=== PATIENT | female | born 1940 | race Caucasian/White ===

== ENCOUNTER 2017-09-22 13:52 | Inpatient (IN) | payer MEDICARE, OTHER ==
--- NOTE | 2017-09-22 14:05 | EDM.PDOC ---
ED HPI GENERAL MEDICAL PROBLEM - General Chief Complaint: Respiratory Problem Stated Complaint: IN BY AMBULANCE Time Seen by Provider: 09/22/17 13:55 Source of Information: Reports: Patient, EMS, EMS Notes Reviewed, RN, RN Notes Reviewed History Limitations: Reports: No Limitations - History of Present Illness INITIAL COMMENTS - FREE TEXT/NARRATIVE: Patient presents to ER per [facility] with complaint of nausea and shortness of breath. Patient states she began feeling ill last night with nausea and vomiting. she denies diarrhea. She denies fever or chills. States increased shortness of breath last night and tried DuoNeb at home without help. Patient states diagnosed with lung CA 4 weeks ago. No treatment for CA as of right now. Patient history history of COPD and lung. Onset Date: 09/21/17 Duration: Getting Worse Location: Reports: Chest Quality: Reports: Ache Severity: Mild Improves with: Reports: None Worsens with: Reports: None Associated Symptoms: Reports: No Other Symptoms - Related Data Allergies Allergy/AdvReac Type Severity Reaction Status Date / Time amoxicillin Allergy Rash Verified 09/22/17 17:42 atorvastatin calcium Allergy Leg Cramps Verified 09/22/17 17:42 [From Lipitor] levofloxacin [From Levaquin] Allergy Body Aches Verified 09/22/17 17:42 Home Meds: Home Meds Ezetimibe [Zetia] 10 mg PO DAILY 10/18/13 [History] Hydrochlorothiazide/Lisinopril [Lisinopril-HCTZ 20-25 MG] 1 tab PO DAILY [History] Citalopram Hydrobromide [Citalopram HBr] 1 tab PO DAILY 08/05/14 [History] Ibuprofen 2 tab PO Q4HR PRN 08/05/14 [History] Omeprazole 20 mg PO DAILY 08/05/14 [History] Cholecalciferol (Vitamin D3) [Vitamin D3] 1 cap PO DAILY 05/02/15 [History] Nepafenac [Nevanac 0.1% Ophth Soln] 1 drop EYELF TID 05/02/15 [History] Ofloxacin [Floxin 0.3% Otic Soln] 1 drop EYELF QID 05/02/15 [History] Potassium Chloride 2 tab PO DAILY 05/02/15 [History] prednisoLONE Acetate [Pred Forte 1% Ophth Soln] 1 drop EYELF ASDIRECTED [History] Psyllium Seed (With Sugar) [Metamucil Powder] 1 dose PO DAILY PRN 06/29/15 [ History] Past Medical History HEENT History: Reports: Cataract, Impaired Vision Other HEENT History: WEARS GLASSES Cardiovascular History: Reports: High Cholesterol, Hypertension Other Cardiovascular History: HYPERLIPIDEMIA Respiratory History: Reports: Bronchitis, Recurrent Gastrointestinal History: Reports: Diverticulosis, GERD Genitourinary History: Reports: None [employer] History: Reports: Musculoskeletal History: Reports: Back Pain, Chronic, RA, Other (See Below) Other Musculoskeletal History: BIMALLEOAR ANKLE FRACTURE Neurological History: Reports: None Psychiatric History: Reports: Anxiety, Depression Endocrine/Metabolic History: Reports: Osteopenia Hematologic History: Reports: Other (See Below) Other Hematologic History: HYPOKALEMIA Immunologic History: Reports: None Oncologic (Cancer) History: Reports: Breast, Lung Dermatologic History: Reports: None - Past Surgical History HEENT Surgical History: Reports: Cataract Surgery Female Surgical History: Reports: Breast Biopsy Oncologic Surgical History: Reports: Biopsy of Breast, Lumpectomy Social & Family History - Tobacco Use Smoking Status *Q: Former Smoker Years of Tobacco use: 55 Packs/Tins Daily: 1 Used Tobacco, but Quit: No Second Hand Smoke Exposure: Yes - Alcohol Use Days Per Week of Alcohol Use: 2 Number of Drinks Per Day: 5 Total Drinks Per Week: 10 - Recreational Drug Use Recreational Drug Use: No Drug Use in Last 12 Months: No - Living Situation & Occupation Living situation: Reports: Single, Alone Occupation: Employed ED ROS GENERAL - Review of Systems Review Of Systems: ROS reveals no pertinent complaints other than HPI. ED EXAM, GENERAL - Physical Exam Exam: See Below Exam Limited By: No Limitations General Appearance: Other (ill appearing) Eye Exam: Bilateral Eye: Normal Inspection Ears: Normal External Exam, Normal Canal, Hearing Grossly Normal, Normal TMs Nose: Normal Inspection, Normal Mucosa, No Blood Throat/Mouth: Normal Inspection, Normal Lips, Normal Teeth, Normal Gums, Normal Oropharynx, Normal Voice, No Airway Compromise Head: Atraumatic, Normocephalic Neck: Normal Inspection, Supple, Non-Tender, Full Range of Motion Respiratory/Chest: Crackles (to bases), Other (decreased air entry (lung sounds) . ) Cardiovascular: Irregularly Irregular GI/Abdominal: Normal Bowel Sounds, Soft, Non-Tender, No Organomegaly, No Distention, No Abnormal Bruit, No Mass (Female) Exam: Deferred Rectal (Female) Exam: Deferred Back Exam: Full Range of Motion Extremities: Normal Inspection Neurological: Alert, Oriented, CN II-XII Intact, Normal Cognition, Normal Gait, Normal Reflexes, No Motor/Sensory Deficits Psychiatric: Normal Affect, Normal Mood Skin Exam: Pallor Lymphatic: No Adenopathy EKG INTERPRETATION EKG Date: 09/22/17 Time: 13:58 Rate (Beats/Min): 106 EKG Interpretation Comments: EKG on 09/22/17 shows sinus tachycardia and left bundle branch block. Course - Vital Signs Last Recorded V/S: Last Vital Signs Temp 99.9 F 09/22/17 16:56 Pulse 95 09/22/17 16:56 Resp 22 H 09/22/17 16:56 BP 113/60 09/22/17 16:56 Pulse Ox 90 L 09/22/17 16:56 - Orders/Labs/Meds Orders: Active Orders 24 hr Category Date Time Status EKG Documentation Completion [RC] STAT Care 09/22/17 13:59 Active Oxygen Therapy, ED [RC] ASDIRECTED Care 09/22/17 14:01 Active RT Aerosol Therapy [RC] ASDIRECTED Care 09/22/17 14:10 Active Chest 1V Frontal [CR] Urgent Exams 09/22/17 13:59 Taken CULTURE BLOOD [BC] Stat Lab 09/22/17 14:15 Received CULTURE BLOOD [BC] Stat Lab 09/22/17 16:20 Received CULTURE SPUTUM + SMEAR [RM] Stat Lab 09/22/17 16:57 Ordered Blood Culture x2 Reflex Set [OM.PC] Stat Oth 09/22/17 13:59 Ordered Medication Orders Acetaminophen/Codeine Phosphate (Tylenol With Codeine No.3 300mg/30mg) 1 tab PO Q6H PRN PRN Reason: moderate pain Albuterol (Proventil Neb Soln) 2.5 mg NEB Q4HRRT PRN PRN Reason: sob Albuterol/Ipratropium (Duoneb 3.0-0.5 Mg/3 Ml) 3 ml NEB TIDRT [facility] Budesonide (Pulmicort) 0.5 mg NEB BIDRT [facility] Last Admin: 09/22/17 18:01 Dose: 0.5 mg Ceftriaxone Sodium (Rocephin) 1 gm IVPUSH Q24H [facility] Docusate Sodium (Colace) 100 mg PO BID PRN PRN Reason: Constipation Doxycycline Hyclate (Vibramycin) 100 mg PO BID [facility] Ezetimibe (Zetia) 10 mg PO DAILY [facility] Heparin Sodium (Porcine) (Heparin Sodium) 5,000 units SUBCUT Q8HR [facility] Ibuprofen (Motrin) mg PO Q4HR PRN PRN Reason: Pain Levothyroxine Sodium (Levothyroxine) 25 mcg PO ACBREAKFAST [facility] Methylprednisolone Sodium Succinate (Solu-Medrol) 40 mg IVPUSH Q8H [facility] Non-Formulary Medication (Hydrochlorothiazide/Lisinopril [Lisinopril-Hctz 20-25 Mg]) 1 tab PO DAILY [facility] Non-Formulary Medication (Citalopram Hydrobromide [Citalopram Hbr]) 20 mg PO DAILY [facility] Omeprazole (Omeprazole) 20 mg PO DAILY [facility] Ondansetron HCl (Zofran Odt) 4 mg PO Q6H PRN PRN Reason: nausea, able to take PO Last Admin: 09/22/17 18:01 Dose: 4 mg Ondansetron HCl (Zofran) 4 mg IVPUSH Q6H PRN PRN Reason: Nausea/Vomiting Sodium Chloride (Saline Flush) 10 ml FLUSH ASDIRECTED PRN PRN Reason: Keep Vein Open Zolpidem Tartrate (Ambien) 5 mg PO BEDTIME PRN PRN Reason: Sleep Labs: Laboratory Tests 09/22/17 09/22/17 09/22/17 Range/Units 14:15 14:15 14:15 WBC 18.8 H (5.0-10.0) 10^3/uL RBC 4.61 (4.2-5.4) 10^6/uL Hgb 13.4 (12.0-16.0) g/dL Hct 40.3 (37.0-47.0) % MCV 87.4 D (80-100) fL MCH 29.1 (27.0-34.0) pg MCHC 33.3 (33.0-35.0) g/dL Plt Count 289 (150-450) 10^3/uL Neut % (Auto) 90.4 H (42.2-75.2) % Lymph % (Auto) 3.9 L (20.5-50.1) % [place] % (Auto) 5.2 (2-8) % Eos % (Auto) 0.3 L (1.0-3.0) % Baso % (Auto) 0.2 (0.0-1.0) % Sodium 139 (135-145) mmol/L Potassium 3.2 L (3.6-5.0) mmol/L Chloride 101 (101-111) mmol/L Carbon Dioxide 28.0 (21.0-31.0) mmol/L Anion Gap 13.2 BUN 22 H (7-18) mg/dL Creatinine 1.1 (0.6-1.3) mg/dL Est Cr Clr Drug Dosing 43.62 mL/min Estimated GFR (MDRD) 48 BUN/Creatinine Ratio 20.00 Glucose 147 H (74-105) mg/dL Lactic Acid 1.4 (0.5-2.2) mmol/L Calcium 8.5 (8.4-10.2) mg/dl Total Bilirubin 0.8 (0.2-1.0) mg/dL AST 18 (10-42) IU/L ALT 12 (10-60) IU/L Alkaline Phosphatase 110 (42-121) IU/L Troponin I 0.02 (0.00-0.02) ng/ml Total Protein 6.9 (6.7-8.2) g/dl Albumin 3.0 L (3.2-5.5) g/dl Globulin 3.9 Albumin/Globulin Ratio 0.77 Meds: Medications Generic Name Dose Route Start Last Admin Trade Name Freq PRN Reason Stop Dose Admin Acetaminophen/Codeine Phosphate 1 tab 09/22/17 17:17 Tylenol With Codeine No.3 300mg/30mg PO Q6H PRN moderate pain Albuterol 2.5 mg 09/22/17 17:18 Proventil Neb Soln NEB Q4HRRT PRN sob Albuterol/Ipratropium 3 ml 09/22/17 21:00 Duoneb 3.0-0.5 Mg/3 Ml NEB TIDRT [facility] Budesonide 0.5 mg 09/22/17 18:00 09/22/17 18:01 Pulmicort NEB 0.5 mg BIDRT [facility] Administration Ceftriaxone Sodium 1 gm 09/23/17 17:00 Rocephin IVPUSH Q24H [facility] Docusate Sodium 100 mg 09/22/17 17:24 Colace PO BID PRN Constipation Doxycycline Hyclate 100 mg 09/23/17 09:00 Vibramycin PO BID [facility] Ezetimibe 10 mg 09/23/17 09:00 Zetia PO DAILY [facility] Heparin Sodium (Porcine) 5,000 units 09/22/17 22:00 Heparin Sodium SUBCUT Q8HR [facility] Ibuprofen mg 09/22/17 17:02 Motrin PO Q4HR PRN Pain Levothyroxine Sodium 25 mcg 09/23/17 06:00 Levothyroxine PO ACBREAKFAST [facility] Methylprednisolone Sodium Succinate 40 mg 09/23/17 00:00 Solu-Medrol IVPUSH Q8H [facility] Non-Formulary Medication 1 tab 09/23/17 09:00 Hydrochlorothiazide/Lisinopril [Lisinopril-Hctz 20-25 Mg] PO DAILY [facility] Non-Formulary Medication 20 mg 09/23/17 09:00 Citalopram Hydrobromide [Citalopram Hbr] PO DAILY [facility] Omeprazole 20 mg 09/23/17 09:00 Omeprazole PO DAILY [facility] Ondansetron HCl 4 mg 09/22/17 17:24 09/22/17 18:01 Zofran Odt PO 4 mg Q6H PRN Administration nausea, able to take PO Ondansetron HCl 4 mg 09/22/17 17:24 Zofran IVPUSH Q6H PRN Nausea/Vomiting Sodium Chloride 10 ml 09/22/17 17:24 Saline Flush FLUSH ASDIRECTED PRN Keep Vein Open Zolpidem Tartrate 5 mg 09/22/17 17:24 Ambien PO BEDTIME PRN Sleep Discontinued Medications Generic Name Dose Route Start Last Admin Trade Name Freq PRN Reason Stop Dose Admin Albuterol/Ipratropium 3 ml 09/22/17 14:10 09/22/17 14:58 Duoneb 3.0-0.5 Mg/3 Ml NEB 09/22/17 14:11 3 ml ONETIME ONE Administration Ceftriaxone Sodium Confirm 09/22/17 16:38 09/22/17 16:56 Rocephin Administered 09/22/17 16:39 Not Given Dose 500 mg .ROUTE .STK-MED ONE Ceftriaxone Sodium 1,000 mg/ 100 mls @ 200 mls/hr 09/22/17 16:08 09/22/17 16: 50 Sodium Chloride IV 09/22/17 16:37 200 mls/hr ONETIME ONE Administration Doxycycline Hyclate 100 mg/ 100 mls @ 100 mls/hr 09/22/17 16:08 Sodium Chloride IV 09/22/17 17:07 ONETIME ONE Methylprednisolone Sodium Succinate 125 mg 09/22/17 16:08 09/22/17 16:43 Solu-Medrol IVPUSH 09/22/17 16:09 125 mg ONETIME ONE Administration Non-Formulary Medication 1 tab 09/23/17 09:00 Citalopram Hydrobromide [Citalopram Hbr] PO DAILY [facility] Potassium Chloride 40 meq 09/22/17 17:21 Klor-Con 10 PO 09/22/17 17:22 ONETIME ONE Departure - Departure Time of Disposition: 17:48 Disposition: Admitted As Inpatient 67 Clinical Impression: Pneumonia Qualifiers: Pneumonia type: due to unspecified organism Laterality: left Lung location: lower lobe of lung Qualified Code(s): J18.1 - Lobar pneumonia, unspecified organism - Discharge Information
[2017-09-22] MEDS ORDERED: Albuterol/Ipratropium 3.0-0.5 MG/3 ML Neb Soln NEB ONE (14:10)
[2017-09-22] MEDS ORDERED: Doxycycline 100 MG in Sodium Chloride 0.9% 100 ML IV ONE ×2 (16:08→18:30)
[2017-09-22] MEDS ORDERED: methylPREDNISolone Sodium Succinate 125 MG/2 ML SDV IVPUSH ONE (16:08)
[2017-09-22] MEDS ORDERED: cefTRIAXone 500 MG Vial ONE (16:38)
[2017-09-22] MEDS ORDERED: Ibuprofen 200 MG Tab PO PRN (17:02)
[2017-09-22] MEDS ORDERED: Acetaminophen/Codeine 300-30 MG Tab PO PRN (17:17)
[2017-09-22] MEDS ORDERED: Albuterol 0.083% 2.5 MG/3 ML Neb Soln NEB PRN (17:18)
[2017-09-22] MEDS ORDERED: Potassium Chloride 10 MEQ Tab.ER PO ONE (17:21)
[2017-09-22] MEDS ORDERED: Ondansetron 4 MG/2 ML SDV IVPUSH PRN (17:24)
[2017-09-22] MEDS ORDERED: Ondansetron 4 MG Tab.DIS PO PRN (17:24)
[2017-09-22] MEDS ORDERED: Docusate Sodium 100 MG Cap PO PRN (17:24)
--- NOTE | 2017-09-22 17:40 | PCM.HP ---
H&P History of Present Illness - General Date of Service: 09/22/17 Admit Problem/Dx: Admission Diagnosis/Problem Admission Diagnosis/Problem Pneumonia Source of Information: Patient - History of Present Illness Initial Comments - Free Text/Narative: 77-year-old lady who presented with malaise, nausea, increasing shortness of breath. She has a history of severe COPD, hypertension, oxygen dependency, recently diagnosed lung cancer Comes have been present for 34 days. Symptoms have been worsening. No associated chest pain. She is on home oxygen but when the EMS arrived she was hypoxemic on her usual home oxygen dose. Oxygen saturations were in the low 80s. She had subjective fever and chills but could not measure her temperature at home. - Related Data Allergies/Adverse Reactions: Allergies Allergy/AdvReac Type Severity Reaction Status Date / Time amoxicillin Allergy Rash Verified 09/22/17 13:57 atorvastatin calcium Allergy Leg Cramps Verified 09/22/17 13:57 [From Lipitor] levofloxacin [From Levaquin] Allergy Body Aches Verified 09/22/17 13:57 Home Medications: Home Meds Ezetimibe [Zetia] 10 mg PO DAILY 10/18/13 [History] Hydrochlorothiazide/Lisinopril [Lisinopril-HCTZ 20-25 MG] 1 tab PO DAILY [History] Citalopram Hydrobromide [Citalopram HBr] 1 tab PO DAILY 08/05/14 [History] Ibuprofen 2 tab PO Q4HR PRN 08/05/14 [History] Omeprazole 20 mg PO DAILY 08/05/14 [History] Cholecalciferol (Vitamin D3) [Vitamin D3] 1 cap PO DAILY 05/02/15 [History] Nepafenac [Nevanac 0.1% Ophth Soln] 1 drop EYELF TID 05/02/15 [History] Ofloxacin [Floxin 0.3% Otic Soln] 1 drop EYELF QID 05/02/15 [History] Potassium Chloride 2 tab PO DAILY 05/02/15 [History] prednisoLONE Acetate [Pred Forte 1% Ophth Soln] 1 drop EYELF ASDIRECTED [History] Psyllium Seed (With Sugar) [Metamucil Powder] 1 dose PO DAILY PRN 06/29/15 [ History] Past Medical History HEENT History: Reports: Cataract, Impaired Vision Other HEENT History: WEARS GLASSES Cardiovascular History: Reports: High Cholesterol, Hypertension Other Cardiovascular History: HYPERLIPIDEMIA Respiratory History: Reports: Bronchitis, Recurrent Gastrointestinal History: Reports: Diverticulosis, GERD Genitourinary History: 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: Musculoskeletal History: Reports: Back Pain, Chronic, RA, Other (See Below) Other Musculoskeletal History: BIMALLEOAR ANKLE FRACTURE Neurological History: Reports: None Psychiatric History: Reports: Anxiety, Depression Endocrine/Metabolic History: Reports: Osteopenia Hematologic History: Reports: Other (See Below) Other Hematologic History: HYPOKALEMIA Immunologic History: Reports: None Oncologic (Cancer) History: Reports: Breast, Lung Dermatologic History: Reports: None - Past Surgical History HEENT Surgical History: Reports: Cataract Surgery Female Surgical History: Reports: Breast Biopsy Oncologic Surgical History: Reports: Biopsy of Breast, Lumpectomy Social & Family History - Family History Family Medical History: Noncontributory - Tobacco Use Smoking Status *Q: Former Smoker Years of Tobacco use: 55 Packs/Tins Daily: 1 Used Tobacco, but Quit: No Month/Year Tobacco Last Used: ? Second Hand Smoke Exposure: Yes - Caffeine Use Caffeine Use: Reports: Coffee - Alcohol Use Days Per Week of Alcohol Use: 2 Number of Drinks Per Day: 5 Total Drinks Per Week: 10 - Recreational Drug Use Recreational Drug Use: No Drug Use in Last 12 Months: No - Living Situation & Occupation Living situation: Reports: Single, Alone Occupation: Employed H&P Review of Systems - Review of Systems: Review Of Systems: See Below General: Reports: Chills. 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 Denies: Hemoptysis Cardiovascular: Denies: Chest Pain, Edema Gastrointestinal: Reports: Anorexia, Nausea. Denies: Abdominal Pain Musculoskeletal: Denies: Neck Pain Psychiatric: Denies: Confusion Neurological: Denies: Dizziness Exam - Exam Exam: See Below - Vital Signs Vital Signs: Last Vital Signs Temp 37.7 C 09/22/17 16:56 Pulse 95 09/22/17 16:56 Resp 22 H 09/22/17 16:56 BP 113/60 09/22/17 16:56 Pulse Ox 90 L 09/22/17 16:56 Weight: 63.503 kg - Exam Quality Assessment: Supplemental Oxygen General: Alert HEENT: EOMI Neck: Supple Lungs: Normal Respiratory Effort, Decreased Breath Sounds. No: Wheezing Cardiovascular: Regular Rate, Regular Rhythm GI/Abdominal Exam: Normal Bowel Sounds, Soft, Non-Tender Back Exam: Normal Inspection, Full Range of Motion Extremities: Normal Inspection, No Pedal Edema - Patient Data Lab Results Last 24 hrs: Laboratory Results - last 24 hr 09/22/17 09/22/17 09/22/17 Range/Units 14:15 14:15 14:15 WBC 18.8 H (5.0-10.0) 10^3/uL RBC 4.61 (4.2-5.4) 10^6/uL Hgb 13.4 (12.0-16.0) g/dL Hct 40.3 (37.0-47.0) % MCV 87.4 D (80-100) fL MCH 29.1 (27.0-34.0) pg MCHC 33.3 (33.0-35.0) g/dL Plt Count 289 (150-450) 10^3/uL Neut % (Auto) 90.4 H (42.2-75.2) % Lymph % (Auto) 3.9 L (20.5-50.1) % [place] % (Auto) 5.2 (2-8) % Eos % (Auto) 0.3 L (1.0-3.0) % Baso % (Auto) 0.2 (0.0-1.0) % Sodium 139 (135-145) mmol/L Potassium 3.2 L (3.6-5.0) mmol/L Chloride 101 (101-111) mmol/L Carbon Dioxide 28.0 (21.0-31.0) mmol/L Anion Gap 13.2 BUN 22 H (7-18) mg/dL Creatinine 1.1 (0.6-1.3) mg/dL Est Cr Clr Drug Dosing 43.62 mL/min Estimated GFR (MDRD) 48 BUN/Creatinine Ratio 20.00 Glucose 147 H (74-105) mg/dL Lactic Acid 1.4 (0.5-2.2) mmol/L Calcium 8.5 (8.4-10.2) mg/dl Total Bilirubin 0.8 (0.2-1.0) mg/dL AST 18 (10-42) IU/L ALT 12 (10-60) IU/L Alkaline Phosphatase 110 (42-121) IU/L Troponin I 0.02 (0.00-0.02) ng/ml Total Protein 6.9 (6.7-8.2) g/dl Albumin 3.0 L (3.2-5.5) g/dl Globulin 3.9 Albumin/Globulin Ratio 0.77 Result Diagrams: 09/22/17 14:15 09/22/17 14:15 EKG INTERPRETATION Rhythm: NSR EKG Interpretation Comments: Left bundle-branch block Problem List Initiated/Reviewed/Updated: Yes Orders Last 24hrs: Active Orders 24 hr Category Date Time Status Patient Status [ADT] Routine ADT 09/22/17 17:24 Ordered EKG Documentation Completion [RC] STAT Care 09/22/17 13:59 Active Oxygen Therapy [RC] PRN Care 09/22/17 17:24 Ordered Oxygen Therapy, ED [RC] ASDIRECTED Care 09/22/17 14:01 Active Peripheral IV Care [RC] . DIRECTED Care 09/22/17 17:26 Ordered RT Aerosol Therapy [RC] ASDIRECTED Care 09/22/17 14:10 Active RT Aerosol Therapy [RC] ASDIRECTED Care 09/22/17 17:18 Ordered Up With Assistance [RC] ASDIRECTED Care 09/22/17 17:24 Ordered VTE/DVT Education [RC] PER UNIT ROUTINE Care 09/22/17 17:24 Ordered Vital Signs [RC] Q4H Care 09/22/17 17:24 Ordered Regular Diet [DIET] Diet 09/22/17 Breakfast Ordered Chest 1V Frontal [CR] Urgent Exams 09/22/17 13:59 Taken BASIC METABOLIC PANEL,BMP [CHEM] AM Lab 09/23/17 05:15 Ordered CBC WITH AUTO DIFF [HEME] AM Lab 09/23/17 05:15 Ordered CULTURE BLOOD [BC] Stat Lab 09/22/17 14:15 Received CULTURE BLOOD [BC] Stat Lab 09/22/17 16:20 Received CULTURE SPUTUM + SMEAR [RM] Stat Lab 09/22/17 16:57 Ordered Acetaminophen/Codeine [Tylenol with Codeine No.3 300MG/ Med 09/22/17 17:17 Ordered 30MG] 1 tab PO Q6H PRN Albuterol [Proventil Neb Soln] Med 09/22/17 17:18 Ordered 2.5 mg NEB Q4HRRT PRN Albuterol/Ipratropium [DuoNeb 3.0-0.5 MG/3 ML] Med 09/22/17 21:00 Ordered 3 ml NEB TID Budesonide [Pulmicort] Med 09/22/17 18:00 Ordered 0.5 mg NEB BIDRT Citalopram Hydrobromide [Citalopram HBr] Med 09/23/17 09:00 Ordered 20 mg PO DAILY Docusate Sodium [Colace] Med 09/22/17 17:24 Ordered 100 mg PO BID PRN Doxycycline [Vibramycin] Med 09/23/17 09:00 Ordered 100 mg PO BID Ezetimibe [Zetia] Med 09/23/17 09:00 Ordered 10 mg PO DAILY Heparin Sodium Med 09/22/17 22:00 Ordered 5,000 units SUBCUT Q8HR Hydrochlorothiazide/Lisinopril [Lisinopril-HCTZ 20-25 Med 09/23/17 09:00 Ordered MG] 1 tab PO DAILY Ibuprofen [Motrin] Med 09/22/17 17:02 Ordered 2 tab PO Q4HR PRN Levothyroxine Med 09/23/17 06:00 Ordered 25 mcg PO ACBREAKFAST Omeprazole Med 09/23/17 09:00 Ordered 20 mg PO DAILY Ondansetron [Zofran ODT] Med 09/22/17 17:24 Ordered 4 mg PO Q6H PRN Ondansetron [Zofran] Med 09/22/17 17:24 Ordered 4 mg IVPUSH Q6H PRN Potassium Chloride [Klor-Con 10] Med 09/22/17 17:21 Once 40 meq PO ONETIME ONE Sodium Chloride 0.9% [Saline Flush] Med 09/22/17 17:24 Ordered 10 ml FLUSH ASDIRECTED PRN Zolpidem [Ambien] Med 09/22/17 17:24 Ordered 5 mg PO BEDTIME PRN cefTRIAXone [Rocephin] Med 09/23/17 17:00 Ordered 1 gm IVPUSH Q24H methylPREDNISolone Sod Succ [Solu-MEDROL] Med 09/22/17 17:30 Ordered 40 mg IVPUSH Q8H Antiembolic Hose [OM.PC] Per Unit Routine Oth 09/22/17 17:25 Ordered Blood Culture x2 Reflex Set [OM.PC] Stat Oth 09/22/17 13:59 Ordered Peripheral IV Insertion Adult [OM.PC] Routine Oth 09/22/17 17:24 Ordered Saline Lock Insert [OM.PC] Routine Oth 09/22/17 17:24 Ordered Resuscitation Status Routine Resus Stat 09/22/17 17:24 Ordered Medication Orders Acetaminophen/Codeine Phosphate (Tylenol With Codeine No.3 300mg/30mg) 1 tab PO Q6H PRN PRN Reason: moderate pain Albuterol (Proventil Neb Soln) 2.5 mg NEB Q4HRRT PRN PRN Reason: sob Albuterol/Ipratropium (Duoneb 3.0-0.5 Mg/3 Ml) 3 ml NEB TID [facility] Budesonide (Pulmicort) 0.5 mg NEB BIDRT [facility] Ceftriaxone Sodium (Rocephin) 1 gm IVPUSH Q24H [facility] Docusate Sodium (Colace) 100 mg PO BID PRN PRN Reason: Constipation Doxycycline Hyclate (Vibramycin) 100 mg PO BID [facility] Ezetimibe (Zetia) 10 mg PO DAILY [facility] Heparin Sodium (Porcine) (Heparin Sodium) 5,000 units SUBCUT Q8HR [facility] Ibuprofen (Motrin) mg PO Q4HR PRN PRN Reason: Pain Levothyroxine Sodium (Levothyroxine) 25 mcg PO ACBREAKFAST [facility] Methylprednisolone Sodium Succinate (Solu-Medrol) 40 mg IVPUSH Q8H [facility] Non-Formulary Medication (Hydrochlorothiazide/Lisinopril [Lisinopril-Hctz 20-25 Mg]) 1 tab PO DAILY [facility] Non-Formulary Medication (Citalopram Hydrobromide [Citalopram Hbr]) 20 mg PO DAILY [facility] Omeprazole (Omeprazole) 20 mg PO DAILY [facility] Ondansetron HCl (Zofran Odt) 4 mg PO Q6H PRN PRN Reason: nausea, able to take PO Potassium Chloride (Klor-Con 10) 40 meq PO ONETIME ONE Stop: 09/22/17 17:22 Assessment/Plan Comment:: 77 yo F with h/o severe copd, home oxygen dependent, recently dx. lung ca, htn presented with malaise, chills, cough, increasing sob noted to have left sided lung infiltrate, leukocytosis #1 left-sided pneumonia In an immunocompromised patient with lung cancer, COPD, home oxygen dependency We'll obtain sputum culture, blood culture Start the patient on ceftriaxone and doxycycline treatment. #2 acute and chronic hypoxemic respiratory failure Normally the patient is on 2 L nasal cannula oxygen We'll supplement oxygen as needed #3 recent diagnosis of lung cancer No treatment started yet [facility] #4 acute COPD exacerbation with shortness of breath We'll continue Pulmicort, scheduled DuoNeb Use as needed albuterol for shortness of breath Start IV Solu-Medrol and taper later #5 hypertension Treat with hydrochlorothiazide and lisinopril #6 hypokalemia We'll give supplement dose now Continue supplement daily Recheck electrolytes in the morning #7 hypothyroidism Treat with Synthroid #8 DVT prophylaxis Start subcutaneous heparin
[2017-09-22] MEDS: Budesonide 0.5 MG/2 ML Neb Susp NEB SCH (18:01)
[2017-09-22] MEDS: Heparin Sodium 5,000 Units/ML Vial SUBCUT SCH (21:21)
[2017-09-22] MEDS: Albuterol/Ipratropium 3.0-0.5 MG/3 ML Neb Soln NEB SCH (21:21)
[2017-09-22] MEDS ORDERED: Calcium Carbonate 500 MG Tab.Chew PO PRN (21:51)
[2017-09-22] MEDS: Zolpidem 5 MG Tab PO PRN (22:01)
[2017-09-22] MEDS: Omeprazole 20 MG Cap.CR PO SCH (22:01)
[2017-09-22] MEDS: methylPREDNISolone Sodium Succinate 40 MG/1 ML SDV IVPUSH SCH (23:02)
[2017-09-22] MEDS: guaiFENesin 100 MG/5 ML Soln 5 ML UD Cup PO PRN (23:02)
[2017-09-23] MEDS: Levothyroxine 25 MCG Tab PO SCH (05:36)
[2017-09-23] MEDS: Omeprazole 20 MG Cap.CR PO SCH (05:36)
[2017-09-23] MEDS: Heparin Sodium 5,000 Units/ML Vial SUBCUT SCH ×3 (05:36→23:11)
[2017-09-23] MEDS: methylPREDNISolone Sodium Succinate 40 MG/1 ML SDV IVPUSH SCH ×2 (07:39→16:28)
[2017-09-23] MEDS: Sodium Chloride 0.9% 10 ML Syringe FLUSH PRN ×4 (07:44→23:29)
[2017-09-23] MEDS: Budesonide 0.5 MG/2 ML Neb Susp NEB SCH ×2 (07:53→18:33)
[2017-09-23] MEDS: Albuterol/Ipratropium 3.0-0.5 MG/3 ML Neb Soln NEB SCH ×3 (07:53→22:58)
[2017-09-23] MEDS ORDERED: Non-Formulary Medication 1 Each (Hydrochlorothiazide/Lisinopril [Lisinopril-Hctz 20-25 Mg] PO SCH (09:00)
[2017-09-23] MEDS ORDERED: CITALOPRAM HYDROBROMIDE PO SCH (09:00)
[2017-09-23] MEDS ORDERED: Ezetimibe 10 MG Tab PO SCH (09:00)
[2017-09-23] MEDS: Citalopram 20 MG Tab PO SCH (09:35)
[2017-09-23] MEDS: Doxycycline 100 MG Cap PO SCH ×2 (09:36→22:59)
[2017-09-23] MEDS: Hydrochlorothiazide 25 MG Tab PO SCH (10:20)
[2017-09-23] MEDS: Lisinopril 20 MG Tab PO SCH (10:20)
[2017-09-23] MEDS: guaiFENesin 100 MG/5 ML Soln 5 ML UD Cup PO PRN (11:23)
[2017-09-23] MEDS ORDERED: Potassium Chloride 10 MEQ Tab.ER PO ONE (12:44)
--- NOTE | 2017-09-23 13:01 | PCM.PN ---
- General Info Date of Service: 09/23/17 Admission Dx/Problem (Free Text): Admission Diagnosis/Problem Admission Diagnosis/Problem Pneumonia Subjective Update: Admitted with shortness of breath. She is feeling better. She still has a cough. No associated chest pain. No abdominal pain. No diarrhea, she says she has a tendency for constipation. Functional Status: Reports: Pain Controlled - Review of Systems General: Denies: Fever Pulmonary: Reports: Cough. Denies: Shortness of Breath, Hemoptysis, Wheezing Cardiovascular: Denies: Chest Pain Gastrointestinal: Denies: Abdominal Pain Genitourinary: Denies: Dysuria Neurological: Denies: Confusion Psychiatric: Denies: Depression - Patient Data Vitals - Most Recent: Last Vital Signs Temp 36.5 C 09/23/17 11:36 Pulse 121 H 09/23/17 11:36 Resp 20 09/23/17 11:36 BP 107/43 L 09/23/17 11:36 Pulse Ox 94 L 09/23/17 11:36 Weight - Most Recent: 63.049 kg I&O - Last 24 Hours: Intake & Output 09/22/17 09/23/17 09/23/17 22:59 06:59 14:59 Intake Total 1800 100 625 Output Total 200 400 Balance 1600 100 225 Lab Results Last 24 Hours: Laboratory Results - last 24 hr 09/22/17 09/22/17 09/22/17 Range/Units 14:15 14:15 14:15 WBC 18.8 H (5.0-10.0) 10^3/uL RBC 4.61 (4.2-5.4) 10^6/uL Hgb 13.4 (12.0-16.0) g/dL Hct 40.3 (37.0-47.0) % MCV 87.4 D (80-100) fL MCH 29.1 (27.0-34.0) pg MCHC 33.3 (33.0-35.0) g/dL Plt Count 289 (150-450) 10^3/uL Neut % (Auto) 90.4 H (42.2-75.2) % Lymph % (Auto) 3.9 L (20.5-50.1) % [place] % (Auto) 5.2 (2-8) % Eos % (Auto) 0.3 L (1.0-3.0) % Baso % (Auto) 0.2 (0.0-1.0) % Sodium 139 (135-145) mmol/L Potassium 3.2 L (3.6-5.0) mmol/L Chloride 101 (101-111) mmol/L Carbon Dioxide 28.0 (21.0-31.0) mmol/L Anion Gap 13.2 BUN 22 H (7-18) mg/dL Creatinine 1.1 (0.6-1.3) mg/dL Est Cr Clr Drug Dosing 43.62 mL/min Estimated GFR (MDRD) 48 BUN/Creatinine Ratio 20.00 Glucose 147 H (74-105) mg/dL Lactic Acid 1.4 (0.5-2.2) mmol/L Calcium 8.5 (8.4-10.2) mg/dl Total Bilirubin 0.8 (0.2-1.0) mg/dL AST 18 (10-42) IU/L ALT 12 (10-60) IU/L Alkaline Phosphatase 110 (42-121) IU/L Troponin I 0.02 (0.00-0.02) ng/ml Total Protein 6.9 (6.7-8.2) g/dl Albumin 3.0 L (3.2-5.5) g/dl Globulin 3.9 Albumin/Globulin Ratio 0.77 09/23/17 09/23/17 Range/Units 06:28 06:28 WBC 13.7 H (5.0-10.0) 10^3/uL RBC 4.02 L (4.2-5.4) 10^6/uL Hgb 11.7 L D (12.0-16.0) g/dL Hct 35.5 L (37.0-47.0) % MCV 88.3 (80-100) fL MCH 29.1 (27.0-34.0) pg MCHC 33.0 (33.0-35.0) g/dL Plt Count 264 (150-450) 10^3/uL Neut % (Auto) 96.1 H (42.2-75.2) % Lymph % (Auto) 2.6 L (20.5-50.1) % [place] % (Auto) 1.2 L (2-8) % Eos % (Auto) 0.0 L (1.0-3.0) % Baso % (Auto) 0.1 (0.0-1.0) % Sodium 137 (135-145) mmol/L Potassium 3.5 L (3.6-5.0) mmol/L Chloride 102 (101-111) mmol/L Carbon Dioxide 26.0 (21.0-31.0) mmol/L Anion Gap 12.5 BUN 27 H (7-18) mg/dL Creatinine 1.1 (0.6-1.3) mg/dL Est Cr Clr Drug Dosing 43.31 mL/min Estimated GFR (MDRD) 48 BUN/Creatinine Ratio Glucose 178 H (74-105) mg/dL Lactic Acid (0.5-2.2) mmol/L Calcium 8.5 (8.4-10.2) mg/dl Total Bilirubin (0.2-1.0) mg/dL AST (10-42) IU/L ALT (10-60) IU/L Alkaline Phosphatase (42-121) IU/L Troponin I (0.00-0.02) ng/ml Total Protein (6.7-8.2) g/dl Albumin (3.2-5.5) g/dl Globulin Albumin/Globulin Ratio Yuri Results Last 24 Hours: Microbiology 09/22/17 16:57 Gram Stain - Final Sputum - Expectorated Med Orders - Current: Current Medications Acetaminophen/Codeine Phosphate (Tylenol With Codeine No.3 300mg/30mg) 1 tab PO Q6H PRN PRN Reason: moderate pain Albuterol (Proventil Neb Soln) 2.5 mg NEB Q4HRRT PRN PRN Reason: sob Albuterol/Ipratropium (Duoneb 3.0-0.5 Mg/3 Ml) 3 ml NEB TIDRT [facility] Last Admin: 09/23/17 07:53 Dose: 3 ml Budesonide (Pulmicort) 0.5 mg NEB BIDRT [facility] Last Admin: 09/23/17 07:53 Dose: 0.5 mg Calcium Carbonate/Glycine (Tums) 500 mg PO Q6H PRN PRN Reason: Nausea Last Admin: 09/22/17 23:03 Dose: 500 mg Ceftriaxone Sodium (Rocephin) 1 gm IVPUSH Q24H [facility] Citalopram Hydrobromide (Celexa) 20 mg PO DAILY [facility] Last Admin: 09/23/17 09:35 Dose: 20 mg Docusate Sodium (Colace) 100 mg PO BID PRN PRN Reason: Constipation Doxycycline Hyclate (Vibramycin) 100 mg PO BID [facility] Last Admin: 09/23/17 09:36 Dose: 100 mg Guaifenesin (Robitussin) 300 mg PO Q6H PRN PRN Reason: Cough Last Admin: 09/23/17 11:23 Dose: 300 mg Heparin Sodium (Porcine) (Heparin Sodium) 5,000 units SUBCUT Q8HR [facility] Last Admin: 09/23/17 05:36 Dose: 5,000 units Hydrochlorothiazide (Hydrochlorothiazide) 25 mg PO DAILY [facility] Last Admin: 09/23/17 10:20 Dose: 25 mg Ibuprofen (Motrin) 400 mg PO Q4H PRN PRN Reason: Pain Levothyroxine Sodium (Levothyroxine) 25 mcg PO ACBREAKFAST [facility] Last Admin: 09/23/17 05:36 Dose: 25 mcg Lisinopril (Prinivil) 20 mg PO DAILY [facility] Last Admin: 09/23/17 10:20 Dose: 20 mg Methylprednisolone Sodium Succinate (Solu-Medrol) 40 mg IVPUSH Q8H [facility] Last Admin: 09/23/17 07:39 Dose: 40 mg Omeprazole (Omeprazole) 20 mg PO DAILY@0600 [facility] Last Admin: 09/23/17 05:36 Dose: 20 mg Ondansetron HCl (Zofran Odt) 4 mg PO Q6H PRN PRN Reason: nausea, able to take PO Last Admin: 09/22/17 18:01 Dose: 4 mg Ondansetron HCl (Zofran) 4 mg IVPUSH Q6H PRN PRN Reason: Nausea/Vomiting Potassium Chloride (Klor-Con 10) 40 meq PO ONETIME ONE Stop: 09/23/17 12:45 Sodium Chloride (Saline Flush) 10 ml FLUSH ASDIRECTED PRN PRN Reason: Keep Vein Open Last Admin: 09/23/17 07:44 Dose: 10 ml Zolpidem Tartrate (Ambien) 5 mg PO BEDTIME PRN PRN Reason: Sleep Last Admin: 09/22/17 22:01 Dose: 5 mg Discontinued Medications Albuterol/Ipratropium (Duoneb 3.0-0.5 Mg/3 Ml) 3 ml NEB ONETIME ONE Stop: 09/22/17 14:11 Last Admin: 09/22/17 14:58 Dose: 3 ml Ceftriaxone Sodium (Rocephin) Confirm Administered Dose 500 mg .ROUTE .STK-MED ONE Stop: 09/22/17 16:39 Last Admin: 09/22/17 16:56 Dose: Not Given Ezetimibe (Zetia) 10 mg PO DAILY [facility] Ceftriaxone Sodium 1,000 mg/ (Sodium Chloride) 100 mls @ 200 mls/hr IV ONETIME ONE Stop: 09/22/17 16:37 Last Infusion: 09/22/17 19:44 Dose: Infused Doxycycline Hyclate 100 mg/ (Sodium Chloride) 100 mls @ 100 mls/hr IV ONETIME ONE Stop: 09/22/17 17:07 Last Admin: 09/22/17 18:28 Dose: Not Given Doxycycline Hyclate 100 mg/ (Sodium Chloride) 100 mls @ 100 mls/hr IV ONETIME ONE Stop: 09/22/17 19:29 Last Admin: 09/22/17 18:38 Dose: 100 mls/hr Methylprednisolone Sodium Succinate (Solu-Medrol) 125 mg IVPUSH ONETIME ONE Stop: 09/22/17 16:09 Last Admin: 09/22/17 16:43 Dose: 125 mg Non-Formulary Medication (Citalopram Hydrobromide [Citalopram Hbr]) 1 tab PO DAILY [facility] Potassium Chloride (Klor-Con 10) 40 meq PO ONETIME ONE Stop: 09/22/17 17:22 Last Admin: 09/22/17 18:36 Dose: 40 meq - Exam Quality Assessment: Supplemental Oxygen General: Alert, Oriented Neck: Supple Lungs: Clear to Auscultation, Normal Respiratory Effort Cardiovascular: Regular Rate, Regular Rhythm GI/Abdominal Exam: Normal Bowel Sounds, Soft, Non-Tender, No Distention Extremities: No Pedal Edema - Problem List Review Problem List Initiated/Reviewed/Updated: Yes - My Orders Last 24 Hours: My Active Orders 09/22/17 17:02 Ibuprofen [Motrin] 400 mg PO Q4H PRN 09/22/17 17:17 Acetaminophen/Codeine [Tylenol with Codeine No.3 300MG/30MG] 1 tab PO Q6H PRN 04/22/18 17:18 RT Aerosol Therapy [RC] ASDIRECTED Albuterol [Proventil Neb Soln] 2.5 mg NEB Q4HRRT PRN 09/22/17 17:24 Patient Status [ADT] Routine Oxygen Therapy [RC] PRN Up With Assistance [RC] ASDIRECTED VTE/DVT Education [RC] PER UNIT ROUTINE Vital Signs [RC] Q4H Docusate Sodium [Colace] 100 mg PO BID PRN Ondansetron [Zofran ODT] 4 mg PO Q6H PRN Ondansetron [Zofran] 4 mg IVPUSH Q6H PRN Sodium Chloride 0.9% [Saline Flush] 10 ml FLUSH ASDIRECTED PRN Zolpidem [Ambien] 5 mg PO BEDTIME PRN Peripheral IV Insertion Adult [OM.PC] Routine Saline Lock Insert [OM.PC] Routine Resuscitation Status Routine 09/22/17 17:25 Antiembolic Hose [OM.PC] Per Unit Routine 09/22/17 17:26 Peripheral IV Care [RC] . DIRECTED 09/22/17 18:00 Budesonide [Pulmicort] 0.5 mg NEB BIDRT 09/22/17 21:00 Albuterol/Ipratropium [DuoNeb 3.0-0.5 MG/3 ML] 3 ml NEB TIDRT 09/22/17 21:51 Calcium Carbonate [Tums] 500 mg PO Q6H PRN 09/22/17 21:54 guaiFENesin [Robitussin] 300 mg PO Q6H PRN 09/22/17 22:00 Heparin Sodium 5,000 units SUBCUT Q8HR Omeprazole 20 mg PO DAILY@0600 09/23/17 00:00 methylPREDNISolone Sod Succ [Solu-MEDROL] 40 mg IVPUSH Q8H 09/23/17 06:00 Levothyroxine 25 mcg PO ACBREAKFAST 09/23/17 09:00 Citalopram [Celexa] 20 mg PO DAILY Doxycycline [Vibramycin] 100 mg PO BID Hydrochlorothiazide 25 mg PO DAILY Lisinopril [Prinivil] 20 mg PO DAILY 09/23/17 12:44 Potassium Chloride [Klor-Con 10] 40 meq PO ONETIME ONE 09/23/17 17:00 cefTRIAXone [Rocephin] 1 gm IVPUSH Q24H 09/24/17 05:15 BASIC METABOLIC PANEL,BMP [CHEM] AM CBC WITH AUTO DIFF [HEME] AM - Plan Plan:: 77 yo F with h/o severe copd, home oxygen dependent, recently dx. lung ca, htn presented with malaise, chills, cough, increasing sob noted to have left sided lung infiltrate, leukocytosis #1 left-sided pneumonia In an immunocompromised patient with lung cancer, COPD, home oxygen dependency sputum culture: pending blood culture: pending Treat with ceftriaxone and doxycycline treatment. #2 acute on chronic hypoxemic respiratory failure Normally the patient is on 2 L nasal cannula oxygen We'll supplement oxygen as needed #3 recent diagnosis of lung cancer No treatment started yet Follow-up at [facility] on #4 acute COPD exacerbation with shortness of breath We'll continue Pulmicort, scheduled DuoNeb Use as needed albuterol for shortness of breath Started IV Solu-Medrol and taper later #5 hypertension Treat with hydrochlorothiazide and lisinopril #6 hypokalemia We'll give another supplement dose now Continue supplement daily Recheck electrolytes in the morning #7 hypothyroidism Treat with Synthroid #8 DVT prophylaxis With subcutaneous heparin
[2017-09-23] MEDS ORDERED: Polyethylene Glycol 3350 Powder 17 GM Packet PO PRN (13:02)
[2017-09-23] MEDS: cefTRIAXone 1 GM Vial IVPUSH SCH (16:33)
[2017-09-23] MEDS: Zolpidem 5 MG Tab PO PRN (22:58)
[2017-09-24] MEDS: Sodium Chloride 0.9% 10 ML Syringe FLUSH PRN ×2 (00:31→08:01)
[2017-09-24] MEDS: methylPREDNISolone Sodium Succinate 40 MG/1 ML SDV IVPUSH SCH ×3 (00:32→21:39)
[2017-09-24] MEDS: Levothyroxine 25 MCG Tab PO SCH (05:57)
[2017-09-24] MEDS: Omeprazole 20 MG Cap.CR PO SCH (05:58)
[2017-09-24] MEDS: Heparin Sodium 5,000 Units/ML Vial SUBCUT SCH ×3 (05:59→21:39)
[2017-09-24] MEDS: Budesonide 0.5 MG/2 ML Neb Susp NEB SCH ×2 (07:35→18:03)
[2017-09-24] MEDS: Albuterol/Ipratropium 3.0-0.5 MG/3 ML Neb Soln NEB SCH ×3 (07:35→21:39)
[2017-09-24] MEDS: Doxycycline 100 MG Cap PO SCH ×2 (09:13→21:39)
[2017-09-24] MEDS: Hydrochlorothiazide 25 MG Tab PO SCH (09:13)
[2017-09-24] MEDS: Citalopram 20 MG Tab PO SCH (09:13)
[2017-09-24] MEDS: Lisinopril 20 MG Tab PO SCH (09:13)
[2017-09-24] MEDS ORDERED: Potassium Chloride 10 MEQ Tab.ER PO ONE (11:21)
--- NOTE | 2017-09-24 11:24 | PCM.PN ---
- General Info Date of Service: 09/24/17 Admission Dx/Problem (Free Text): Admission Diagnosis/Problem Admission Diagnosis/Problem Pneumonia Subjective Update: Admitted with shortness of breath. She is improving. She has less cough. No associated chest pain. No abdominal pain. No fever. - Review of Systems General: Reports: Weakness. Denies: Fever Pulmonary: Reports: Shortness of Breath, Cough Cardiovascular: Denies: Chest Pain, Edema Genitourinary: Denies: Dysuria Neurological: Denies: Confusion - Patient Data Vitals - Most Recent: Last Vital Signs Temp 36.9 C 09/24/17 11:17 Pulse 64 09/24/17 11:17 Resp 20 09/24/17 11:17 BP 122/49 L 09/24/17 11:17 Pulse Ox 95 09/24/17 11:17 Weight - Most Recent: 64.047 kg I&O - Last 24 Hours: Intake & Output 09/23/17 09/24/17 09/24/17 22:59 06:59 14:59 Intake Total 500 400 520 Output Total 400 350 Balance 100 50 520 Lab Results Last 24 Hours: Laboratory Results - last 24 hr 09/24/17 09/24/17 Range/Units 06:35 06:35 WBC 17.1 H (5.0-10.0) 10^3/uL RBC 3.65 L (4.2-5.4) 10^6/uL Hgb 10.6 L (12.0-16.0) g/dL Hct 32.2 L (37.0-47.0) % MCV 88.2 (80-100) fL MCH 29.0 (27.0-34.0) pg MCHC 32.9 L (33.0-35.0) g/dL Plt Count 270 (150-450) 10^3/uL Neut % (Auto) 94.7 H (42.2-75.2) % Lymph % (Auto) 2.3 L (20.5-50.1) % [place] % (Auto) 2.9 (2-8) % Eos % (Auto) 0.0 L (1.0-3.0) % Baso % (Auto) 0.1 (0.0-1.0) % Sodium 136 (135-145) mmol/L Potassium 3.5 L (3.6-5.0) mmol/L Chloride 102 (101-111) mmol/L Carbon Dioxide 26.0 (21.0-31.0) mmol/L Anion Gap 11.5 BUN 31 H (7-18) mg/dL Creatinine 1.0 (0.6-1.3) mg/dL Est Cr Clr Drug Dosing 48.28 mL/min Estimated GFR (MDRD) 54 Glucose 195 H (74-105) mg/dL Calcium 8.2 L (8.4-10.2) mg/dl Yuri Results Last 24 Hours: Microbiology 09/22/17 16:57 Gram Stain - Final Sputum - Expectorated Sputum Culture - Preliminary 09/22/17 16:20 Aerobic Blood Culture - Preliminary Blood - Venous - Lab Draw NO GROWTH AFTER 1 DAY Anaerobic Blood Culture - Preliminary NO GROWTH AFTER 1 DAY 09/22/17 14:15 Aerobic Blood Culture - Preliminary Blood - Venous NO GROWTH AFTER 1 DAY Anaerobic Blood Culture - Preliminary NO GROWTH AFTER 1 DAY Med Orders - Current: Current Medications Acetaminophen/Codeine Phosphate (Tylenol With Codeine No.3 300mg/30mg) 1 tab PO Q6H PRN PRN Reason: moderate pain Albuterol (Proventil Neb Soln) 2.5 mg NEB Q4HRRT PRN PRN Reason: sob Albuterol/Ipratropium (Duoneb 3.0-0.5 Mg/3 Ml) 3 ml NEB TIDRT [facility] Last Admin: 09/24/17 07:35 Dose: 3 ml Budesonide (Pulmicort) 0.5 mg NEB BIDRT [facility] Last Admin: 09/24/17 07:35 Dose: 0.5 mg Calcium Carbonate/Glycine (Tums) 500 mg PO Q6H PRN PRN Reason: Nausea Last Admin: 09/22/17 23:03 Dose: 500 mg Ceftriaxone Sodium (Rocephin) 1 gm IVPUSH Q24H [facility] Last Admin: 09/23/17 16:33 Dose: 1 gm Citalopram Hydrobromide (Celexa) 20 mg PO DAILY [facility] Last Admin: 09/24/17 09:13 Dose: 20 mg Doxycycline Hyclate (Vibramycin) 100 mg PO BID [facility] Last Admin: 09/24/17 09:13 Dose: 100 mg Guaifenesin (Robitussin) 300 mg PO Q6H PRN PRN Reason: Cough Last Admin: 09/23/17 11:23 Dose: 300 mg Heparin Sodium (Porcine) (Heparin Sodium) 5,000 units SUBCUT Q8HR [facility] Last Admin: 09/24/17 05:59 Dose: 5,000 units Hydrochlorothiazide (Hydrochlorothiazide) 25 mg PO DAILY [facility] Last Admin: 09/24/17 09:13 Dose: 25 mg Ibuprofen (Motrin) 400 mg PO Q4H PRN PRN Reason: Pain Levothyroxine Sodium (Levothyroxine) 25 mcg PO ACBREAKFAST [facility] Last Admin: 09/24/17 05:57 Dose: 25 mcg Lisinopril (Prinivil) 20 mg PO DAILY [facility] Last Admin: 09/24/17 09:13 Dose: 20 mg Methylprednisolone Sodium Succinate (Solu-Medrol) 40 mg IVPUSH Q8H [facility] Last Admin: 09/24/17 08:01 Dose: 40 mg Omeprazole (Omeprazole) 20 mg PO DAILY@0600 [facility] Last Admin: 09/24/17 05:58 Dose: 20 mg Ondansetron HCl (Zofran Odt) 4 mg PO Q6H PRN PRN Reason: nausea, able to take PO Last Admin: 09/22/17 18:01 Dose: 4 mg Ondansetron HCl (Zofran) 4 mg IVPUSH Q6H PRN PRN Reason: Nausea/Vomiting Polyethylene Glycol (Miralax) 17 gm PO BEDTIME PRN PRN Reason: Constipation Potassium Chloride (Klor-Con 10) 40 meq PO ONETIME ONE Stop: 09/24/17 11:22 Senna/Docusate Sodium (Senna Plus) 1 tab PO BID [facility] Last Admin: 09/24/17 09:14 Dose: 1 tab Sodium Chloride (Saline Flush) 10 ml FLUSH ASDIRECTED PRN PRN Reason: Keep Vein Open Last Admin: 09/24/17 08:01 Dose: 10 ml Zolpidem Tartrate (Ambien) 5 mg PO BEDTIME PRN PRN Reason: Sleep Last Admin: 09/23/17 22:58 Dose: 5 mg Discontinued Medications Albuterol/Ipratropium (Duoneb 3.0-0.5 Mg/3 Ml) 3 ml NEB ONETIME ONE Stop: 09/22/17 14:11 Last Admin: 09/22/17 14:58 Dose: 3 ml Ceftriaxone Sodium (Rocephin) Confirm Administered Dose 500 mg .ROUTE .STK-MED ONE Stop: 09/22/17 16:39 Last Admin: 09/22/17 16:56 Dose: Not Given Docusate Sodium (Colace) 100 mg PO BID PRN PRN Reason: Constipation Ezetimibe (Zetia) 10 mg PO DAILY [facility] Last Admin: 09/23/17 19:38 Dose: Not Given Ceftriaxone Sodium 1,000 mg/ (Sodium Chloride) 100 mls @ 200 mls/hr IV ONETIME ONE Stop: 09/22/17 16:37 Last Infusion: 09/22/17 19:44 Dose: Infused Doxycycline Hyclate 100 mg/ (Sodium Chloride) 100 mls @ 100 mls/hr IV ONETIME ONE Stop: 09/22/17 17:07 Last Admin: 09/22/17 18:28 Dose: Not Given Doxycycline Hyclate 100 mg/ (Sodium Chloride) 100 mls @ 100 mls/hr IV ONETIME ONE Stop: 09/22/17 19:29 Last Admin: 09/22/17 18:38 Dose: 100 mls/hr Methylprednisolone Sodium Succinate (Solu-Medrol) 125 mg IVPUSH ONETIME ONE Stop: 09/22/17 16:09 Last Admin: 09/22/17 16:43 Dose: 125 mg Non-Formulary Medication (Citalopram Hydrobromide [Citalopram Hbr]) 1 tab PO DAILY [facility] Potassium Chloride (Klor-Con 10) 40 meq PO ONETIME ONE Stop: 09/22/17 17:22 Last Admin: 09/22/17 18:36 Dose: 40 meq Potassium Chloride (Klor-Con 10) 40 meq PO ONETIME ONE Stop: 09/23/17 12:45 Last Admin: 09/23/17 13:34 Dose: 40 meq - Exam General: Alert, Oriented Neck: Supple Lungs: Normal Respiratory Effort, Decreased Breath Sounds. No: Wheezing Cardiovascular: Regular Rate, Regular Rhythm GI/Abdominal Exam: Normal Bowel Sounds, Soft, Non-Tender Extremities: No Pedal Edema - Problem List Review Problem List Initiated/Reviewed/Updated: Yes - My Orders Last 24 Hours: My Active Orders 09/23/17 13:02 Polyethylene Glycol 3350 [MiraLAX] 17 gm PO BEDTIME PRN 09/23/17 13:15 Docusate Sodium/Sennosides [Senna Plus] 1 tab PO BID 09/23/17 16:52 Dietary Supplements [RC] TIDAC 09/23/17 17:00 cefTRIAXone [Rocephin] 1 gm IVPUSH Q24H 09/24/17 11:21 Potassium Chloride [Klor-Con 10] 40 meq PO ONETIME ONE 09/25/17 05:15 BASIC METABOLIC PANEL,BMP [CHEM] AM CBC WITH AUTO DIFF [HEME] AM - Plan Plan:: 77 yo F with h/o severe copd, home oxygen dependent, recently dx. lung ca, htn presented with malaise, chills, cough, increasing sob noted to have left sided lung infiltrate, leukocytosis #1 left-sided pneumonia In an immunocompromised patient with lung cancer, COPD, home oxygen dependency sputum culture: pending - preliminary results gram-negative rods blood culture: pending Treat with ceftriaxone and doxycycline treatment. #2 acute on chronic hypoxemic respiratory failure Normally the patient is on 2 L nasal cannula oxygen We'll supplement oxygen as needed #3 recent diagnosis of lung cancer No treatment started yet Follow-up at [facility] on #4 acute COPD exacerbation with shortness of breath We'll continue Pulmicort, scheduled DuoNeb Use as needed albuterol for shortness of breath Will taper IV Solu-Medrol #5 hypertension Treat with hydrochlorothiazide and lisinopril #6 hypokalemia We'll give another supplement dose today Recheck electrolytes in the morning #7 hypothyroidism Treat with Synthroid #8 DVT prophylaxis With subcutaneous heparin
[2017-09-24] MEDS: cefTRIAXone 1 GM Vial IVPUSH SCH (17:31)
[2017-09-24] MEDS: Zolpidem 5 MG Tab PO PRN (21:39)
[2017-09-25] MEDS: Levothyroxine 25 MCG Tab PO SCH (05:54)
[2017-09-25] MEDS: Omeprazole 20 MG Cap.CR PO SCH (05:54)
[2017-09-25] MEDS: Heparin Sodium 5,000 Units/ML Vial SUBCUT SCH (05:54)
[2017-09-25] MEDS: Budesonide 0.5 MG/2 ML Neb Susp NEB SCH (07:53)
[2017-09-25] MEDS: Albuterol/Ipratropium 3.0-0.5 MG/3 ML Neb Soln NEB SCH (07:53)
[2017-09-25] MEDS: methylPREDNISolone Sodium Succinate 40 MG/1 ML SDV IVPUSH SCH (09:14)
[2017-09-25] MEDS: Lisinopril 20 MG Tab PO SCH (09:15)
[2017-09-25] MEDS: Citalopram 20 MG Tab PO SCH (09:15)
[2017-09-25] MEDS: Doxycycline 100 MG Cap PO SCH (09:15)
[2017-09-25] MEDS: Hydrochlorothiazide 25 MG Tab PO SCH (09:15)
--- NOTE | 2017-09-25 10:48 | PCM.DCSUM1 ---
Discharge Summary - Hospital Course Free Text/Narrative:: 77 yo F with h/o severe copd, home oxygen dependent, recently dx. lung ca, htn presented with malaise, chills, cough, increasing sob noted to have left sided lung infiltrate, leukocytosis. Treated with IV and later switched to Po antibiotics. Improved, will be d/valerie home. #1 left-sided pneumonia In an immunocompromised patient with lung cancer, COPD, home oxygen dependency #2 acute on chronic hypoxemic respiratory failure Normally the patient is on 2 L nasal cannula oxygen We'll supplement oxygen as needed #3 recent diagnosis of lung cancer No treatment started yet Follow-up at [facility] on #4 acute COPD exacerbation with shortness of breath albuterol/prednisone #5 hypertension Treat with hydrochlorothiazide and lisinopril #6 hypokalemia #7 hypothyroidism Treat with Synthroid - Discharge Data Discharge Date: 09/25/17 Discharge Disposition: Home, Self-Care 01 Condition: Fair - Patient Instructions Activity: As Tolerated Driving: May Drive Today Showering/Bathing: May Shower Notify Provider of: Fever, Nausea and/or Vomiting - Discharge Plan Prescriptions/Med Rec: Albuterol [IJD: Ventolin HFA] 2 puff INH .TWICE DAILY #18 gm Cefdinir [Omnicef] 300 mg PO BID #14 cap Doxycycline Calcium [IMW: Doxycycline] 100 mg PO BID #14 capsule guaiFENesin [Robitussin] 300 mg PO Q6H PRN #1 bottle PRN Reason: Cough Home Medications: Home Meds Hydrochlorothiazide/Lisinopril [Lisinopril-HCTZ 20-25 MG] 1 tab PO DAILY [History] Citalopram Hydrobromide [Citalopram HBr] 20 tab PO DAILY 08/05/14 [History] Ibuprofen 400 mg PO Q6HR PRN 08/05/14 [History] Omeprazole 20 mg PO DAILY 08/05/14 [History] Cholecalciferol (Vitamin D3) [Vitamin D3] 1,000 units PO DAILY 05/02/15 [History ] Potassium Chloride 20 meq PO DAILY 05/02/15 [History] Acetaminophen with Codeine [Acetaminophen-Cod #3] 1 tab PO Q6H PRN 09/22/17 [ History] Celecoxib 400 mg PO DAILY 09/22/17 [History] Cetirizine HCl 10 mg PO DAILY 09/22/17 [History] Fenofibrate,Micronized [Fenofibrate] 134 mg PO DAILY 09/22/17 [History] Levothyroxine 25 mcg PO DAILY 09/22/17 [History] Ondansetron [Ondansetron ODT] 8 mg PO ASDIRECTED 09/22/17 [History] Sennosides/Docusate Sodium [Senna S Tablet] 1 tab PO BID PRN 09/22/17 [History] Albuterol [IJD: Ventolin HFA] 2 puff INH .TWICE DAILY #18 gm 09/25/17 [Rx] Cefdinir [Omnicef] 300 mg PO BID #14 cap 09/25/17 [Rx] Doxycycline Calcium [IMW: Doxycycline] 100 mg PO BID #14 capsule 09/25/17 [Rx] guaiFENesin [Robitussin] 300 mg PO Q6H PRN #1 bottle 09/25/17 [Rx] Referrals: Spring Jaramillo, [employer] [Primary Care Provider] - - Review of Systems General: Reports: Weakness HEENT: Reports: No Symptoms Cardiovascular: Reports: Dyspnea on Exertion Gastrointestinal: Reports: No Symptoms Psychiatric: Reports: No Symptoms - Patient Data Vitals - Most Recent: Last Vital Signs Temp 36.8 C 09/25/17 05:30 Pulse 95 09/25/17 08:06 Resp 20 09/25/17 08:06 BP 143/67 H 09/25/17 09:15 Pulse Ox 97 09/25/17 08:06 Weight - Most Recent: 64.047 kg I&O - Last 24 hours: Intake & Output 09/24/17 09/25/17 09/25/17 22:59 06:59 14:59 Intake Total 330 200 Output Total 200 500 Balance 130 -500 200 Lab Results - Last 24 hrs: Laboratory Results - last 24 hr 09/25/17 09/25/17 Range/Units 06:15 06:15 WBC 13.0 H (5.0-10.0) 10^3/uL RBC 3.85 L (4.2-5.4) 10^6/uL Hgb 11.1 L (12.0-16.0) g/dL Hct 34.1 L (37.0-47.0) % MCV 88.6 (80-100) fL MCH 28.8 (27.0-34.0) pg MCHC 32.6 L (33.0-35.0) g/dL Plt Count 269 (150-450) 10^3/uL Neut % (Auto) 92.6 H (42.2-75.2) % Lymph % (Auto) 3.8 L (20.5-50.1) % Josephine % (Auto) 3.5 (2-8) % Eos % (Auto) 0.0 L (1.0-3.0) % Baso % (Auto) 0.1 (0.0-1.0) % Sodium 135 (135-145) mmol/L Potassium 3.9 (3.6-5.0) mmol/L Chloride 102 (101-111) mmol/L Carbon Dioxide 25.0 (21.0-31.0) mmol/L Anion Gap 11.9 BUN 32 H (7-18) mg/dL Creatinine 1.0 (0.6-1.3) mg/dL Est Cr Clr Drug Dosing 48.28 mL/min Estimated GFR (MDRD) 54 Glucose 147 H (74-105) mg/dL Calcium 8.1 L (8.4-10.2) mg/dl [place] Results - Last 24 hrs: Microbiology 09/22/17 16:57 Gram Stain - Final Sputum - Expectorated Sputum Culture - Preliminary 09/22/17 16:20 Aerobic Blood Culture - Preliminary Blood - Venous - Lab Draw NO GROWTH AFTER 2 DAYS Anaerobic Blood Culture - Preliminary NO GROWTH AFTER 2 DAYS 09/22/17 14:15 Aerobic Blood Culture - Preliminary Blood - Venous NO GROWTH AFTER 2 DAYS Anaerobic Blood Culture - Preliminary NO GROWTH AFTER 2 DAYS Med Orders - Current: Current Medications Acetaminophen/Codeine Phosphate (Tylenol With Codeine No.3 300mg/30mg) 1 tab PO Q6H PRN PRN Reason: moderate pain Albuterol (Proventil Neb Soln) 2.5 mg NEB Q4HRRT PRN PRN Reason: sob Albuterol/Ipratropium (Duoneb 3.0-0.5 Mg/3 Ml) 3 ml NEB TIDRT [facility] Last Admin: 09/25/17 07:53 Dose: 3 ml Budesonide (Pulmicort) 0.5 mg NEB BIDRT [facility] Last Admin: 09/25/17 07:53 Dose: 0.5 mg Calcium Carbonate/Glycine (Tums) 500 mg PO Q6H PRN PRN Reason: Nausea Last Admin: 09/22/17 23:03 Dose: 500 mg Ceftriaxone Sodium (Rocephin) 1 gm IVPUSH Q24H [facility] Last Admin: 09/24/17 17:31 Dose: 1 gm Citalopram Hydrobromide (Celexa) 20 mg PO DAILY [facility] Last Admin: 09/25/17 09:15 Dose: 20 mg Doxycycline Hyclate (Vibramycin) 100 mg PO BID [facility] Last Admin: 09/25/17 09:15 Dose: 100 mg Guaifenesin (Robitussin) 300 mg PO Q6H PRN PRN Reason: Cough Last Admin: 09/23/17 11:23 Dose: 300 mg Heparin Sodium (Porcine) (Heparin Sodium) 5,000 units SUBCUT Q8HR [facility] Last Admin: 09/25/17 05:54 Dose: 5,000 units Hydrochlorothiazide (Hydrochlorothiazide) 25 mg PO DAILY [facility] Last Admin: 09/25/17 09:15 Dose: 25 mg Ibuprofen (Motrin) 400 mg PO Q4H PRN PRN Reason: Pain Levothyroxine Sodium (Levothyroxine) 25 mcg PO ACBREAKFAST [facility] Last Admin: 09/25/17 05:54 Dose: 25 mcg Lisinopril (Prinivil) 20 mg PO DAILY [facility] Last Admin: 09/25/17 09:15 Dose: 20 mg Methylprednisolone Sodium Succinate (Solu-Medrol) 40 mg IVPUSH BID [facility] Last Admin: 09/25/17 09:14 Dose: 40 mg Omeprazole (Omeprazole) 20 mg PO DAILY@0600 [facility] Last Admin: 09/25/17 05:54 Dose: 20 mg Ondansetron HCl (Zofran Odt) 4 mg PO Q6H PRN PRN Reason: nausea, able to take PO Last Admin: 09/22/17 18:01 Dose: 4 mg Ondansetron HCl (Zofran) 4 mg IVPUSH Q6H PRN PRN Reason: Nausea/Vomiting Polyethylene Glycol (Miralax) 17 gm PO BEDTIME PRN PRN Reason: Constipation Senna/Docusate Sodium (Senna Plus) 1 tab PO BID [facility] Last Admin: 09/25/17 09:15 Dose: 1 tab Sodium Chloride (Saline Flush) 10 ml FLUSH ASDIRECTED PRN PRN Reason: Keep Vein Open Last Admin: 09/24/17 08:01 Dose: 10 ml Zolpidem Tartrate (Ambien) 5 mg PO BEDTIME PRN PRN Reason: Sleep Last Admin: 09/24/17 21:39 Dose: 5 mg Discontinued Medications Albuterol/Ipratropium (Duoneb 3.0-0.5 Mg/3 Ml) 3 ml NEB ONETIME ONE Stop: 09/22/17 14:11 Last Admin: 09/22/17 14:58 Dose: 3 ml Ceftriaxone Sodium (Rocephin) Confirm Administered Dose 500 mg .ROUTE .STK-MED ONE Stop: 09/22/17 16:39 Last Admin: 09/22/17 16:56 Dose: Not Given Docusate Sodium (Colace) 100 mg PO BID PRN PRN Reason: Constipation Ezetimibe (Zetia) 10 mg PO DAILY [facility] Last Admin: 09/23/17 19:38 Dose: Not Given Ceftriaxone Sodium 1,000 mg/ (Sodium Chloride) 100 mls @ 200 mls/hr IV ONETIME ONE Stop: 09/22/17 16:37 Last Infusion: 09/22/17 19:44 Dose: Infused Doxycycline Hyclate 100 mg/ (Sodium Chloride) 100 mls @ 100 mls/hr IV ONETIME ONE Stop: 09/22/17 17:07 Last Admin: 09/22/17 18:28 Dose: Not Given Doxycycline Hyclate 100 mg/ (Sodium Chloride) 100 mls @ 100 mls/hr IV ONETIME ONE Stop: 09/22/17 19:29 Last Admin: 09/22/17 18:38 Dose: 100 mls/hr Methylprednisolone Sodium Succinate (Solu-Medrol) 125 mg IVPUSH ONETIME ONE Stop: 09/22/17 16:09 Last Admin: 09/22/17 16:43 Dose: 125 mg Methylprednisolone Sodium Succinate (Solu-Medrol) 40 mg IVPUSH Q8H [facility] Last Admin: 09/24/17 08:01 Dose: 40 mg Non-Formulary Medication (Citalopram Hydrobromide [Citalopram Hbr]) 1 tab PO DAILY [facility] Potassium Chloride (Klor-Con 10) 40 meq PO ONETIME ONE Stop: 09/22/17 17:22 Last Admin: 09/22/17 18:36 Dose: 40 meq Potassium Chloride (Klor-Con 10) 40 meq PO ONETIME ONE Stop: 09/23/17 12:45 Last Admin: 09/23/17 13:34 Dose: 40 meq Potassium Chloride (Klor-Con 10) 40 meq PO ONETIME ONE Stop: 09/24/17 11:22 Last Admin: 09/24/17 12:02 Dose: 40 meq - Exam Quality Assessment: Reports: Supplemental Oxygen General: Reports: Alert, Oriented Lungs: Reports: Decreased Breath Sounds Cardiovascular: Reports: Regular Rate, Regular Rhythm GI/Abdominal Exam: Soft, Non-Tender
[2017-09-25 10:54] VITALS: BP 126/53
== END 2017-09-25 12:48 | disposition home or self-care (01) | DRG 193 ==
LOC: DL.ED 13:52 → DL.MS 16:58 → UNDOADMIN 16:58 → DL.MS 17:24
PROVIDERS: ADMIT Internal Medicine; ATTEND Internal Medicine
DX: J18.1 Lobar pneumonia, unspecified organism (principal); J96.21 Acute and chronic respiratory failure with hypoxia; J44.9 Chronic obstructive pulmonary disease, unspecified; C34.90 Malignant neoplasm of unspecified part of unspecified bronchus or lung; J44.0 Chronic obstructive pulmonary disease with (acute) lower respiratory infection; J44.1 Chronic obstructive pulmonary disease with (acute) exacerbation; R11.2 Nausea with vomiting, unspecified; H54.7 Unspecified visual loss; I10 Essential (primary) hypertension; E78.5 Hyperlipidemia, unspecified; K57.90 Diverticulosis of intestine, part unspecified, without perforation or abscess without bleeding; K21.9 Gastro-esophageal reflux disease without esophagitis; G89.29 Other chronic pain; M54.9 Dorsalgia, unspecified; M06.9 Rheumatoid arthritis, unspecified; F41.9 Anxiety disorder, unspecified; F32.9 Major depressive disorder, single episode, unspecified; M85.80 Other specified disorders of bone density and structure, unspecified site; E87.6 Hypokalemia; E03.9 Hypothyroidism, unspecified; K59.00 Constipation, unspecified; Z85.3 Personal history of malignant neoplasm of breast; R06.02 Shortness of breath; Z88.1 Allergy status to other antibiotic agents; Z88.8 Allergy status to other drugs, medicaments and biological substances; Z79.52 Long term (current) use of systemic steroids; Z79.899 Other long term (current) drug therapy; Z87.891 Personal history of nicotine dependence; Z99.81 Dependence on supplemental oxygen; Z28.21 Immunization not carried out because of patient refusal
CPT/HCPCS: 36415; 71045; 80053; 83605; 84484; 85025; 87040 ×2; 87070; 87205; 93005; 93010; 94640; 96365; 96375; 99285; J0696; J2930; J7050; 80048; 87077; 87186; A9270-GY; J1644; J2920